=== PATIENT | female | born 1980 | race Caucasian/White ===

== ENCOUNTER → 2017-08-18 14:31 | Outpatient (CLI) | payer BC, SELFPAY ==
--- NOTE | 2017-08-18 14:43 | CT_ITS ---
CT abdomen pelvis w con CLINICAL INDICATION: Right lower quadrant pain with elevated white blood cell count ITS.REASON: ABDOMINAL PAIN ORDERING PHYSICIAN: DAYO Husain PATIENT AGE: 37 years TECHNIQUE: Axial images obtained with sagittal and coronal reformats. All CT scans at the facility use one or more dose reduction, viz: automated exposure control; ma/kV adjustment per patient size (including targeted exams where dose is matched to indication; i.e. head); or iterative reconstruction technique. PROCEDURE: Oral Contrast: None IV Contrast: 75 mL of Isovue-370. FINDINGS: Lung bases are clear. The liver, spleen, adrenal glands, pancreas, and gallbladder have an unremarkable appearance. No renal mass or obstructing ureteral calculus is evident. The appendix has an unremarkable appearance. There is a focal area of stranding of the mesenteric fat anterior to the mid aspect of the ascending colon. There is a ringlike density at this region measuring 12 mm in diameter with a small focal central density. This is consistent with epiploic appendagitis. There are no diverticula are apparent at this region. The appendix is posterior and distal to this area posterior to the ascending colon and has an unremarkable appearance. There is diverticulosis of the descending and sigmoid colon but no evidence of diverticulitis. No pelvic mass abnormal fluid collection or focal inflammatory change of the pelvis evident. No acute bony anomalies. IMPRESSION: 1. Epiploic appendagitis involving the ascending colon. 2. No evidence of appendicitis, abscess, or free air. 3. Colonic diverticulosis with no evidence of diverticulitis
== END ==
PROVIDERS: PCP Family Medicine; Visit Provider Physician Assistant
DX: R10.31 Right lower quadrant pain (principal)
CPT/HCPCS: 74177; Q9967

== ENCOUNTER → 2020-02-26 07:24 | Outpatient (CLI) | payer BC, SELFPAY ==
[2020-02-26 07:44] LABS: Basophils % 0.2 % (0.1-2.0); Eosinophils # 0.1 K/mm3 (0.0-0.4); Eosinophils % 1.8 % (0.1-12.0); Hematocrit 40.1 % (37.0-47.0); Hemoglobin 14.1 g/dL (12.2-16.2); Lymphocytes # 1.3 K/mm3 (0.7-4.5); Lymphocytes % 18.2 % (10-50); Mean Corpuscular HGB Conc 35.2 g/dL (31.8-35.4); Mean Corpuscular Volume 87.9 fl (81-99); Mean Platelet Volume 7.9 fl (7.4-10.4); Monocytes # 0.4 K/mm3 (0.1-1.0); Monocytes % 5.6 % (1.7-9.3); Neutrophils # 5.1 K/mm3 (1.8-7.8); Neutrophils % 74.2 % (37.0-80.0); Platelet Count 290 K/mm3 (142-424); Red Blood Count 4.56 M/mm3 (4.20-5.40); Red Cell Distribution Width 14.4 % (11.5-17.5); White Blood Count 6.9 K/mm3 (4.8-10.8)
[2020-02-26 08:35] LABS: Chloride 103 mmol/L (98-107); Sodium 138 mmol/L (136-145)
[2020-02-26 08:38] LABS: Alanine Aminotransferase 16 U/L (12-78); Albumin Level 4.3 g/dl (3.5-5.0); Alkaline Phosphatase 69 U/L (38-126); Aspartate Amino Transferase 22 U/L (14-36); Bilirubin,Total 0.4 mg/dl (0.2-1.3); Blood Urea Nitrogen 13 mg/dl (7-17); Calcium 9.3 mg/dl (8.4-10.2); Carbon Dioxide 27 mmol/L (22.0-30.0); Estimated Glomerular Filt Rate 112 ml/min (>60); GFR (African American) 136 ML/MIN (>60); Globulin 2.1 g/dL (1.3-3.2); Glucose 101 mg/dl (74-100); Iron 58 ug/dL (37-170); Total Protein,Serum 6.4 g/dl (6.3-8.2)
[2020-02-26 08:53] LABS: 25-OH Vitamin D, Total 68.1 ng/mL (30-100)
[2020-02-26 09:13] LABS: Ferritin 87.9 ng/ml (6.24-137)
[2020-02-26 10:44] LABS: Folate > 20.00 ng/mL
[2020-02-27 15:54] LABS: Prealbumin 17 mg/dL (14-35)
[2020-03-05 10:45] LABS: Vitamin B1 175.3 nmol/L (66.5-200.0)
[2020-03-07 04:50] LABS: Methylmalonic Acid 89 nmol/L (0-378)
== END ==
PROVIDERS: Visit Provider Physician Assistant
DX: E66.9 Obesity, unspecified (principal); K91.1 Postgastric surgery syndromes; E55.9 Vitamin D deficiency, unspecified; Z13.0 Encounter for screening for diseases of the blood and blood-forming organs and certain disorders involving the immune mechanism; Z13.21 Encounter for screening for nutritional disorder
CPT/HCPCS: 36415; 80053; 82131; 82306; 82728; 82746; 83540; 84134; 84425; 85025

== ENCOUNTER 2020-03-31 18:41 | Emergency (ER) | payer BC, SELFPAY ==
[2020-03-31 18:45] VITALS: BP 143/91; PULSE 91; RESP 18; TEMP 36.8; O2SAT 98; BMI 35.0
[2020-03-31 19:14] VITALS: BP 143/91; PULSE 91; RESP 18; TEMP 36.8; O2SAT 98; BMI 35.0
[2020-03-31 19:20] VITALS: BP 143/91; PULSE 91; RESP 18; TEMP 36.8; O2SAT 98
--- NOTE | 2020-03-31 19:50 | HMH.EDUTC ---
[facility] [place] Disposition Clinical Impression: Finger laceration Qualifiers: Encounter type: initial encounter Finger: thumb Damage to nail status: without damage Foreign body presence: without foreign body Laterality: right Qualified Code(s): S61.011A - Laceration without foreign body of right thumb without damage to nail, initial encounter Disposition: Home, Self-Care Condition on Discharge: Good Instructions: DI for Laceration Repair, DI for Laceration Repair -- Simple, DI for Laceration Repair -- Finger Additional Instructions: You have required stitches today. Please read the following instructions so you know how to care for them: 1. Keep wound area dry for the first 24 hours. 2 May clean gently with mild soap and water, after 48 hours to prevent crusting over suture knots. 3. You may shower if your provider gives permission but do not take a bath until the skin is healed.. 4. Never leave a wet dressing or Band-Aid on your stitches as this allows bacteria to reach the area and may cause infection. Band-aids can cause the wound to sweat and not recommended to wear for long periods of time Watch for signs of infection: Increasing redness, tenderness or warmth around the suture site Unusual swelling around the site Appearance of pus around each suture or any red streaks Fever If you develop any of the above signs or symptoms of infection, Follow up with Family Physician immediately 5. Suture removal in _10-12___days 6. Return to [facility] or follow up with family doctor for removal. This can be done by any medical provider during regular hours on Tuesday through Tuesday, by appointment. Referrals: Mendez Roldan MD [Primary Care Provider] - As needed Time of Disposition: 19:51 Medical Decision Making - Ramez Inquiry Pt receiving controlled substance: No Ramez was queried for this patient: No Vital Signs: 03/31/20 18:45 03/31/20 19:14 03/31/20 19:20 Temperature 98.3 F 98.3 F 98.3 F Temperature Source Oral Oral Pulse Rate 91 H Pulse Rate [Left Brachial] 91 H 91 H Respiratory Rate 18 18 18 Blood Pressure 143/91 H Blood Pressure [Left Arm] 143/91 H 143/91 H Blood Pressure Mean [Left Arm] 108 108 Blood Pressure Source [Left Arm] Automatic Cuff Automatic Cuff Blood Pressure Position [Left Arm] Sitting Sitting 02 Sat by Pulse Oximetry 98 98 Oxygen Delivery Method Room Air Room Air Orders (Tests/Meds): ED MEDICATIONS Discontinued Medications Generic Name Dose Route Start Last Admin Trade Name Demetria PRN Reason Stop Dose Admin Tetanus/Diphtheria Toxoids 0.5 ml 03/31/20 19:56 Tetanus-Diphth Toxoid, Adult 0.5ml Syr IM 03/31/20 19:57 .ONCE ONE [facility] [place] HPI - General Stated complaint: AO [id number] Laceration to right thumb Time Seen by Provider: 03/31/20 19:50 Mode of Arrival: Ambulatory Source of Information: Patient Limitations: No Limitations Description of Symptoms (Recalled from Triage Doc. by RN): Laceration to right thumb HEENT Symptoms (Recalled from RN notes): No Resp Symptoms (Recalled from RN notes): No Skin Symptoms (Recalled from RN notes): Yes MS Symptoms (Recalled from RN notes): No Functional Status (Recalled from RN notes): wnl - History of Present Illness Provider Complaint: Patient states she was at home when she accidently cut her right thumb when she was trying to fix some soup State that cut was small and by the fingernail but she knew it needed a stitch or two - Related Data Home Medications Medication Instructions Recorded Confirmed Omeprazole [Omeprazole 40mg 40 mg PO HS 03/31/20 03/31/20 Capsule] ursodioL [Actigall 300mg capsule] 300 mg PO BID 03/31/20 03/31/20 Allergies Allergy/AdvReac Type Severity Reaction Status Date / Time cephalexin [From KEFLET] Allergy Unknown I-RASH Verified 03/31/20 19:20 rimantadine [From FLUMADINE] Allergy Unknown BURNING Verified 03/31/20 19:20 - Worker's Comp Is this a Worker's Comp case?: No Is this an HM
== END 2020-03-31 20:07 | disposition home or self-care (01) ==
PROVIDERS: Emergency Provider Nurse Practitioner; PCP Family Medicine
DX: S61.011A Laceration without foreign body of right thumb without damage to nail, initial encounter (principal); W26.9XXA Contact with unspecified sharp object(s), initial encounter; Y92.010 Kitchen of single-family (private) house as the place of occurrence of the external cause; Z23 Encounter for immunization
CPT/HCPCS: 12001; 90471; 90714; 99201

== ENCOUNTER 2020-05-21 11:57 | Emergency (ER) | payer BC, SELFPAY ==
[2020-05-21 11:58] VITALS: BP 141/86; PULSE 69; RESP 19; TEMP 37.1; O2SAT 100; BMI 34.1
--- NOTE | 2020-05-21 12:39 | HMH.EDUTC ---
[facility] [place] Disposition Clinical Impression: Encounter for laboratory testing for COVID-19 virus Disposition: Home, Self-Care Condition on Discharge: Good Instructions: DI for COVID-19 (Suspected or Confirmed ), Coronavirus Disease 2019, Preventing the Spread of Coronavirus Discharge Instructions Additional Instructions: *Monitor Temp, Over the counter Motrin or Tylenol as directed/as needed Tylenol every 4 hours and Motrin every 6 hours (as long as your family doctor has told you that you can take it) for fever or pain. and straight to ER if unable to lower temp less than 101.0 after medication given Follow up IMMEDIATELY for new or worsening symptoms or no Noticeable improvement over the next 48-72 hours. 911 for difficulty breathing or swallowing You were tested for today for COVID19 your test result should be back in the next 24-48 hours, you may call to the [facility] to see if your test results are back in the next 48 hours [phone] [facility] hours are 9am-9pm You was given a handout with instructions for Self Quarantine and Self isolation for while you wait on test results and what to do if they are positive If you are positive the Health Dept will be contacting you also Referrals: Mendez Roldan MD [Primary Care Provider] - As needed Time of Disposition: 12:43 Medical Decision Making - Ramez Inquiry Pt receiving controlled substance: No Ramez was queried for this patient: No Vital Signs: 05/21/20 11:58 Temperature 98.8 F Temperature Source Oral Pulse Rate [Left Radial] 69 Respiratory Rate 19 Blood Pressure [Right Arm] 141/86 H Blood Pressure Mean [Right Arm] 104 Blood Pressure Source [Right Arm] Automatic Cuff Blood Pressure Position [Right Arm] Sitting 02 Sat by Pulse Oximetry 100 Oxygen Delivery Method Room Air Orders (Tests/Meds): ORDERS Category Date Time Status Covid-19 Nasal PCR Sendout P&C Stat Lab 05/21/20 12:01 Ordered [facility] [place] HPI - General Stated complaint: covid exposure Time Seen by Provider: 05/21/20 12:40 Mode of Arrival: Ambulatory Source of Information: Patient Limitations: No Limitations Description of Symptoms (Recalled from Triage Doc. by RN): covid test HEENT Symptoms (Recalled from RN notes): No Resp Symptoms (Recalled from RN notes): No Skin Symptoms (Recalled from RN notes): No MS Symptoms (Recalled from RN notes): No Functional Status (Recalled from RN notes): wnl - History of Present Illness Provider Complaint: Patient states that her and son recently tested positive for COVID States that she isn't having any symptoms but her other children is suppose to come home and she wanted to get tested before they came - Related Data Home Medications Medication Instructions Recorded Confirmed Omeprazole [Omeprazole 40mg 40 mg PO HS 03/31/20 03/31/20 Capsule] ursodioL [Actigall 300mg capsule] 300 mg PO BID 03/31/20 03/31/20 Allergies Allergy/AdvReac Type Severity Reaction Status Date / Time cephalexin [From KEFLET] Allergy Unknown I-RASH Verified 03/31/20 19:20 rimantadine [From FLUMADINE] Allergy Unknown BURNING Verified 03/31/20 19:20 - Worker's Comp Is this a Worker's Comp case?: No [facility] History - Hepatitis A Screen Drug use history?: No High risk sexual behaviors?: No History of sexually transmitted infection?: No Currently employed?: No Childcare worker?: No Do you have indoor plumbing?: Yes Do you have electricity?: Yes Attestation statement:: This patient has been screened for Hepatitis A risk factors. I have reviewed the patient's past medical history: Yes Laterality Cases: Bilateral: Myringotomy (Ear Tubes), Tonsillectomy Other Surgeries: Yes: No Previous Surgery - Social History Smoking Status: Never smoker Alcohol Intake: never Alcohol Intake Frequency:: holidays/special occasions only Substance Use Type: denies use Occupational Status: other Housing: house Household Members: family Family Hx:: Cancer, Diabetes ROS Obtain
[2020-05-21 12:51] VITALS: BP 141/86; PULSE 69; RESP 19; TEMP 37.1; O2SAT 100
[2020-05-22 08:05] LABS: Covid-19 Nasal PCR Sendout P&C Negative
== END 2020-05-21 12:52 | disposition home or self-care (01) ==
PROVIDERS: Emergency Provider Nurse Practitioner; PCP Family Medicine
DX: Z20.822 Contact with and (suspected) exposure to COVID-19 (principal)
CPT/HCPCS: 99202; G0463; U0004

== ENCOUNTER → 2021-03-26 15:48 | Outpatient (CLI) | payer BC, SELFPAY ==
[2021-03-26 16:36] LABS: Adenovirus,PCR Not Detected (NotDetected); Bordetella Pertussis Not Detected (NotDetected); Chlamydophila Pneumoniae, PCR Not Detected (NotDetected); Coronavirus 19, PCR Not Detected (NotDetected); Coronavirus 229E Not Detected (NotDetected); Coronavirus NL63 Not Detected (NotDetected); Coronavirus OC43 Not Detected (NotDetected); Coronovirus HKU1,PCR Not Detected (NotDetected); Human Metapneumovirus Not Detected (NotDetected); Influenza A, PCR Not Detected (NotDetected); Influenza AH1, 2009 Not Detected (NotDetected); Influenza AH1, PCR Not Detected (NotDetected); Influenza AH3,PCR Not Detected (NotDetected); Influenza B, PCR Not Detected (NotDetected); Mycoplasma Pneumoniae, PCR Not Detected (NotDetected); Parainfluenza 1, PCR Not Detected (NotDetected); Parainfluenza 2, PCR Not Detected (NotDetected); Parainfluenza 3, PCR Not Detected (NotDetected); Parainfluenza 4, PCR Not Detected (NotDetected); Respiratory Syncytial Virus Not Detected (NotDetected); Rhinovirus/Enterovirus Not Detected (NotDetected)
[2021-03-26 17:05] LABS: Basophils # 0.1 K/mm3 (0-0.2); Basophils % 0.6 % (0.1-2.0); Eosinophils # 0.2 K/mm3 (0.0-0.4); Eosinophils % 2.6 % (0.1-12.0); Hematocrit 41.4 % (37.0-47.0); Hemoglobin 14.1 g/dL (12.2-16.2); Lymphocytes # 2.1 K/mm3 (0.7-4.5); Lymphocytes % 22.8 % (10-50); Mean Corpuscular Hemoglobin 30.1 pg (27.0-31.2); Mean Corpuscular Volume 88.5 fl (81-99); Mean Platelet Volume 9.1 fl (7.4-10.4); Monocytes # 0.5 K/mm3 (0.1-1.0); Monocytes % 4.9 % (1.7-9.3); Neutrophils # 6.3 K/mm3 (1.8-7.8); Neutrophils % 69.1 % (37.0-80.0); Platelet Count 353 K/mm3 (142-424); Red Blood Count 4.68 M/mm3 (4.20-5.40); Red Cell Distribution Width 12.7 % (11.5-17.5); White Blood Count 9.1 K/mm3 (4.8-10.8)
== END ==
LOC: LAB 03-27 05:58 → COVID.OUT 03-27 05:58
PROVIDERS: PCP Family Medicine; Visit Provider Family Medicine
DX: Z20.822 Contact with and (suspected) exposure to COVID-19 (principal)
CPT/HCPCS: 36415; 85025; 87581; 87632; 87798; C9803; U0003; U0005

== ENCOUNTER → 2021-04-29 13:21 | Outpatient (CLI) | payer BC, SELFPAY | PROVIDERS: Visit Provider Nurse Practitioner | DX: U07.1 COVID-19 (principal) | CPT/HCPCS: C9803; U0003; U0005 ==

== ENCOUNTER 2021-05-15 09:10 | Emergency (ER) | payer BC, SELFPAY ==
[2021-05-15 09:40] VITALS: BP 136/74; PULSE 78; RESP 18; TEMP 36.6; O2SAT 98; BMI 32.1
[2021-05-15 09:52] LABS: Apearance,Urine Clear (Clear); Bilirubin,Urine Negative (Negative); Blood, Urine Trace (Negative); Color,Urine Yellow (Yellow); Glucose,Urine (UA) Negative (Negative); Ketones,Urine Negative (Negative); PH,Urine 5.5 (5.0-8.5); Protein,Urine Negative (Negative); Specific Gravity, Urine 1.015 (1.005-1.030); UTC Leukocyte Esterase,Urine Negative (Negative); UTC Nitrate,Urine Negative (Negative); Urobilinogen,Urine 0.2 EU/dl (0.2)
--- NOTE | 2021-05-15 10:03 | HMH.EDUTC ---
[facility] [place] Condition on Discharge: Good <Zelda Preciado - Last Filed: 05/15/21 17:50> <Ashleigh Beach - Last Filed: 05/15/21 20:59> Clinical Impression: Abdominal pain Qualifiers: Abdominal location: unspecified location Qualified Code(s): R10.9 - Unspecified abdominal pain Disposition: Home, Self-Care Instructions: Ovarian Cyst, DI for Diverticulitis Prescriptions: Fluconazole 150 mg PO ONCE 3 Days #2 tab Transmission Status: Received by [facility] # levoFLOXacin [Levaquin 750mg tablet] 750 mg PO DAILY #7 tab Transmission Status: Received by [facility] # metroNIDAZOLE [metroNIDAZOLE 500mg Tablet] 500 mg PO TID #21 tab Transmission Status: Received by [facility] # Referrals: Mendez Roldan MD [Primary Care Provider] - Medical Decision Making - Ramez Inquiry Pt receiving controlled substance: No Ramez was queried for this patient: No - Lab Data Lab results reviewed: Yes: I reviewed the patient's lab results. Result diagrams: 05/15/21 10:32 05/15/21 10:32 <Zelda Preciado - Last Filed: 05/15/21 17:50> - Lab Data Result diagrams: 05/15/21 10:32 05/15/21 10:32 <Ashleigh Beach - Last Filed: 05/15/21 20:59> Vital Signs: 05/15/21 09:40 05/15/21 10:17 05/15/21 13:27 Temperature 97.8 F 98.3 F 98.3 F Temperature Source Oral Oral Pulse Rate 65 Pulse Rate [Left Brachial] 78 65 Respiratory Rate 18 15 15 Blood Pressure 128/41 L Blood Pressure [Left Arm] 136/74 128/41 L Blood Pressure Mean [Left Arm] 94 70 Blood Pressure Source [Left Arm] Automatic Cuff Automatic Cuff Blood Pressure Position [Left Arm] Sitting Sitting 02 Sat by Pulse Oximetry 98 99 Oxygen Delivery Method Room Air Room Air Room Air - Lab Data Lab Results 05/15/21 09:47: Urine Color Yellow, Urine Appearance Clear, Urine pH 5.5, Ur Specific [place] 1.015, Urine Protein Negative, Urine Glucose (UA) Negative, Urine Ketones Negative, Urine Blood Trace, Urine Nitrate Negative, Urine Bilirubin Negative, Urine Urobilinogen 0.2, Ur Leukocyte Esterase Negative 05/15/21 10:32: WBC 12.3 H, RBC 4.42, Hgb 13.3, Hct 40.4, MCV 91.4, MCH 30.2, MCHC 33.0, RDW 12.8, Plt Count 306, MPV 7.9, Neut % (Auto) 81.9 H, Lymph % (Auto) 11.9, [place] % (Auto) 5.1, Eos % (Auto) 0.7, Baso % (Auto) 0.4, Neut # (Auto) 10.1 H, Lymph # (Auto) 1.5, [place] # (Auto) 0.6, Eos # (Auto) 0.1, Baso # (Auto) 0.1 05/15/21 10:32: Sodium 139, Potassium 3.9, Chloride 105, Carbon Dioxide 27, Anion Gap 10.9, BUN 19 H, Creatinine 0.70, Estimated Creat Clear 158, Estimated GFR 93, Est GFR ( Amer) 113, Glucose 88, Calcium 8.8 05/15/21 10:32: Serum HCG, Qual Negative Orders (Tests/Meds): ED MEDICATIONS Discontinued Medications Generic Name Dose Route Start Last Admin Trade Name Demetria PRN Reason Stop Dose Admin Iopamidol 75 ml 05/15/21 11:17 05/15/21 11:17 Iopamidol-370 (76%);100ml Bottle IV 05/15/21 11:18 75 ml ONCE ONE Administration Sodium Chloride 10 ml 05/15/21 11:17 05/15/21 11:17 Sodium Chloride 0.9% 10ml Syr (Rad Only) IV 05/15/21 11:18 10 ml ONCE ONE Administration ORDERS Category Date Time Status Urine Culture Stat Micro 05/15/21 09:48 Received Medical Decision Narrative: Discussed with patient and due to patient complaining of left lower abdomen pain recommended that patient be transferred the the ED for further work up and evaluation for abdominal pain Called ED spoke with Farheen and patient was moved to room 9 (Zelda Preciado) Dr. Beach, see my note from the emergency department, did not evaluate this patient in person with STEPHEN. (Ashleigh Beach) [facility] [place] - General Mode of Arrival: Ambulatory Source of Information: Patient Limitations: No Limitations Description of Symptoms (Recalled from Triage Doc. by RN): PATIENT C/O PAIN TO LOWER LEFT ABDOMEN SINCE YESTERDAY. PT BELIEVES IT MAY BE A DIVERTICULITIS ATTACK HEENT Symptoms (Recalled from RN notes): No
--- NOTE | 2021-05-15 10:12 | PC.NURSE ---
PATIENT SENT TO ER PER Andrés SCANLON APRN FOR FURTHER EVALUATION. REPORTS GIVEN TO Marycarmen HO RN BY Andrés SCANLON APRN
[2021-05-15 10:17] VITALS: BP 128/41; PULSE 65; RESP 15; TEMP 36.8; O2SAT 99; BMI 32.1
--- NOTE | 2021-05-15 10:23 | CT_ITS ---
FINAL REPORT CLINICAL HISTORY: hx diverticulitis; LLQ/LUQ abd pain FINDINGS: CT OF THE ABDOMEN AND PELVIS WITH CONTRAST Axial CT images of the abdomen and pelvis were obtained after the administration of iv contrast. Coronal reformatted images were also obtained and reviewed.This study was performed with techniques to keep radiation doses as low as reasonably achievable (ALARA). Individualized dose reduction techniques using automated exposure control or adjustment of mA and/or kV according to the patient's size were employed. Abdomen: The lung bases are clear. The heart is normal in size. The liver has an unremarkable appearance, without evidence of mass or biliary ductal dilatation. The gallbladder is present. There are postoperative changes from gastric sleeve. The spleen is unremarkable. No adrenal mass is present. The pancreas has an unremarkable appearance. The kidneys are normal, without evidence of mass or hydronephrosis. The aorta is normal in caliber. There is no adenopathy. Pelvis: The appendix normal. The urinary bladder is unremarkable. There is a 2.8 cm left ovarian cyst. There are multiple sigmoid diverticula. There is acute proximal sigmoid diverticulitis with no evidence of abscess, bowel obstruction or pneumoperitoneum. There is a small amount of free fluid that could be reactive or physiologic. IMPRESSION: Acute proximal sigmoid diverticulitis as described. Left ovarian cyst. Small amount of free fluid, could be reactive or physiologic. Reviewed, Interpreted and Dictated by Krystian Thomason III, MD Transcribed by Mer Fragoso Authenticated by Krystian Thomason III, MD on 05/15/2021 12:08:19 PM [facility]
--- NOTE | 2021-05-15 10:24 | HMH.EDGENADL ---
ED Disposition Clinical Impression: Abdominal pain Qualifiers: Abdominal location: unspecified location Qualified Code(s): R10.9 - Unspecified abdominal pain Disposition: Home, Self-Care Condition on Discharge: Good Instructions: DI for Diverticulitis, Ovarian Cyst Prescriptions: Fluconazole 150 mg PO ONCE 3 Days #2 tab Transmission Status: Pending to [facility] # levoFLOXacin [Levaquin 750mg tablet] 750 mg PO DAILY #7 tab Transmission Status: Pending to [facility] # metroNIDAZOLE [metroNIDAZOLE 500mg Tablet] 500 mg PO TID #21 tab Transmission Status: Pending to [facility] # Referrals: Mendez Roldan MD [Primary Care Provider] - - Critical Care Critical Care Time: No Attestation: On 05/15/21, the high probability of a clinically significant, sudden or life threatening deterioration of the following system(s) required my full and direct attention, intervention and personal management. The time I documented below is in addition to time spent performing reported procedures but includes the following listed in this critical care notation. Medical Decision Making - Medical Records Medical records reviewed: Yes: I reviewed the patient's medical records. - Ramez Inquiry Pt receiving controlled substance: No Vital Signs: 05/15/21 09:40 05/15/21 10:17 Temperature 97.8 F 98.3 F Temperature Source Oral Oral Pulse Rate [Left Brachial] 78 65 Respiratory Rate 18 15 Blood Pressure [Left Arm] 136/74 128/41 L Blood Pressure Mean [Left Arm] 94 70 Blood Pressure Source [Left Arm] Automatic Cuff Automatic Cuff Blood Pressure Position [Left Arm] Sitting Sitting 02 Sat by Pulse Oximetry 98 99 Oxygen Delivery Method Room Air Room Air - Lab Data Lab results reviewed: Yes: I reviewed the patient's lab results. Lab Results 05/15/21 09:47: Urine Color Yellow, Urine Appearance Clear, Urine pH 5.5, Ur Specific [place] 1.015, Urine Protein Negative, Urine Glucose (UA) Negative, Urine Ketones Negative, Urine Blood Trace, Urine Nitrate Negative, Urine Bilirubin Negative, Urine Urobilinogen 0.2, Ur Leukocyte Esterase Negative 05/15/21 10:32: WBC 12.3 H, RBC 4.42, Hgb 13.3, Hct 40.4, MCV 91.4, MCH 30.2, MCHC 33.0, RDW 12.8, Plt Count 306, MPV 7.9, Neut % (Auto) 81.9 H, Lymph % (Auto) 11.9, [place] % (Auto) 5.1, Eos % (Auto) 0.7, Baso % (Auto) 0.4, Neut # (Auto) 10.1 H, Lymph # (Auto) 1.5, [place] # (Auto) 0.6, Eos # (Auto) 0.1, Baso # (Auto) 0.1 05/15/21 10:32: Sodium 139, Potassium 3.9, Chloride 105, Carbon Dioxide 27, Anion Gap 10.9, BUN 19 H, Creatinine 0.70, Estimated Creat Clear 158, Estimated GFR 93, Est GFR ( Amer) 113, Glucose 88, Calcium 8.8 05/15/21 10:32: Serum HCG, Qual Negative Result diagrams: 05/15/21 10:32 05/15/21 10:32 Orders (Tests/Meds): ED MEDICATIONS Discontinued Medications Generic Name Dose Route Start Last Admin Trade Name Freq PRN Reason Stop Dose Admin Iopamidol 75 ml 05/15/21 11:17 05/15/21 11:17 Iopamidol-370 (76%);100ml Bottle IV 05/15/21 11:18 75 ml ONCE ONE Administration Sodium Chloride 10 ml 05/15/21 11:17 05/15/21 11:17 Sodium Chloride 0.9% 10ml Syr (Rad Only) IV 05/15/21 11:18 10 ml ONCE ONE Administration ORDERS Category Date Time Status Urine Culture Stat Micro 05/15/21 09:48 Received Medical Decision Narrative: 41-year-old female who presents to the emergency department with chief complaint of left lower quadrant abdominal pain. Patient has a history of diverticulitis, and states that this feels similar to past episode. She denies any other associated symptoms. Patient has already had a negative urinalysis at the urgent treatment center, so we will evaluate with a CBC, BMP, qualitative hCG, and proceed with CT abdomen and pelvis with IV contrast to evaluate for diverticulitis or other intra-abdominal abscess or process. Patient did not request any pain medication or nausea medication whi
[2021-05-15 10:43] LABS: Basophils # 0.1 K/mm3 (0-0.2); Basophils % 0.4 % (0.1-2.0); Eosinophils # 0.1 K/mm3 (0.0-0.4); Eosinophils % 0.7 % (0.1-12.0); Hematocrit 40.4 % (37.0-47.0); Hemoglobin 13.3 g/dL (12.2-16.2); Lymphocytes # 1.5 K/mm3 (0.7-4.5); Lymphocytes % 11.9 % (10-50); Mean Corpuscular Hemoglobin 30.2 pg (27.0-31.2); Mean Corpuscular Volume 91.4 fl (81-99); Mean Platelet Volume 7.9 fl (7.4-10.4); Monocytes # 0.6 K/mm3 (0.1-1.0); Monocytes % 5.1 % (1.7-9.3); Neutrophils # 10.1 K/mm3 (1.8-7.8); Neutrophils % 81.9 % (37.0-80.0); Platelet Count 306 K/mm3 (142-424); Red Blood Count 4.42 M/mm3 (4.20-5.40); Red Cell Distribution Width 12.8 % (11.5-17.5); White Blood Count 12.3 K/mm3 (4.8-10.8)
[2021-05-15 11:02] LABS: Chloride 105 mmol/L (98-107); Potassium 3.9 mmoL/L (3.5-5.1); Sodium 139 mmol/L (136-145)
[2021-05-15 11:04] LABS: HCG Qualitative, Serum Negative (Negative)
[2021-05-15 11:05] LABS: Anion Gap 10.9 mEq/L (5-15); Blood Urea Nitrogen 19 mg/dl (7-17); Calcium 8.8 mg/dl (8.4-10.2); Carbon Dioxide 27 mmol/L (22.0-30.0); Creatinine Clearance Estimated 158 mL/min (50-200); Estimated Glomerular Filt Rate 93 ml/min (>60); GFR (African American) 113 ML/MIN (>60); Glucose 88 mg/dl (74-100)
[2021-05-15 13:27] VITALS: BP 128/41; PULSE 65; RESP 15; TEMP 36.8; O2SAT 99
== END 2021-05-15 13:27 | disposition home or self-care (01) ==
LOC: UTC 10:10 → ER 10:12
PROVIDERS: Emergency Medicine; Emergency Provider Nurse Practitioner; PCP Family Medicine
DX: R10.32 Left lower quadrant pain (principal); K57.92 Diverticulitis of intestine, part unspecified, without perforation or abscess without bleeding; Z98.84 Bariatric surgery status
CPT/HCPCS: 74177; 80048; 81003; 84703; 85025; 87086; 99283; Q9967

== ENCOUNTER → 2022-03-30 08:35 | Outpatient (POV) | payer BC, SELFPAY | PROVIDERS: Visit Provider Dermatology | DX: Z00.00 Encounter for general adult medical examination without abnormal findings (principal) ==

== ENCOUNTER 2022-04-15 03:14 | Emergency (ER) | payer BC, SELFPAY ==
[2022-04-15 03:15] VITALS: BP 155/73; PULSE 73; RESP 18; TEMP 36.8; O2SAT 99; BMI 33.6
--- NOTE | 2022-04-15 03:42 | CT_ITS ---
PROCEDURE INFORMATION: Exam: CT Abdomen And Pelvis With Contrast Exam date and time: 04/15/2022 4:20 AM Age: 42 years old Clinical indication: Abdominal pain; Localized; Left lower quadrant (llq); Prior surgery; Surgery type: Gastric sleeve; Additional info: Llq abd pain TECHNIQUE: Imaging protocol: Computed tomography of the abdomen and pelvis with contrast. Radiation optimization: All CT scans at this facility use at least one of these dose optimization techniques: automated exposure control; mA and/or kV adjustment per patient size (includes targeted exams where dose is matched to clinical indication); or iterative reconstruction. Contrast material: ISOVUE; Contrast volume: 75 ml; Contrast route: IV; COMPARISON: CT ABDOMEN PELVIS W CON 05/15/2021 11:10 AM FINDINGS: Liver: No mass. Gallbladder and bile ducts: Stable mild nonspecific intra and extrahepatic biliary ductal dilatation. Pancreas: Normal. No ductal dilation. Spleen: No mass. Adrenal glands: No mass. Kidneys and ureters: No hydronephrosis. Stomach and bowel: Sleeve gastrectomy changes. Small hiatal hernia. Colonic diverticulosis. Wall thickening and slight stranding about the sigmoid colon, compatible with acute diverticulitis. Appendix: No evidence of appendicitis. Intraperitoneal space: Trace nonspecific free pelvic fluid. No free air or drainable fluid collection. Vasculature: No abdominal aortic aneurysm. Lymph nodes: No enlarged lymph nodes. Urinary bladder: Unremarkable as visualized. Reproductive: Nonspecific left ovarian cyst/cystic lesion measuring up to 5.7 x 5.7 cm. This may be physiologic, but consider follow-up transvaginal ultrasound. Bones/joints: No acute fracture. Soft tissues: Unremarkable. IMPRESSION: 1. Colonic diverticulosis. Wall thickening and slight stranding about the sigmoid colon, compatible with acute diverticulitis. No free air or drainable fluid collection. 2. Nonspecific left ovarian cyst/cystic lesion measuring up to 5.7 x 5.7 cm. This may be physiologic, but consider follow-up transvaginal ultrasound. 3. Other findings as detailed in the body of the report.
[2022-04-15 03:51] LABS: Microscopic, Urine URINE MICROSCOPIC (MICROSCOPIC)
[2022-04-15 03:55] LABS: Basophils # 0.1 K/mm3 (0-0.2); Basophils % 0.9 % (0.1-2.0); Eosinophils # 0.1 K/mm3 (0.0-0.4); Eosinophils % 1.2 % (0.1-12.0); Hematocrit 40.4 % (37.0-47.0); Hemoglobin 13.2 g/dL (12.2-16.2); Lymphocytes # 2.4 K/mm3 (0.7-4.5); Lymphocytes % 25.1 % (10-50); Mean Corpuscular HGB Conc 32.6 g/dL (31.8-35.4); Mean Corpuscular Volume 92.1 fl (81-99); Mean Platelet Volume 7.9 fl (7.4-10.4); Monocytes # 0.4 K/mm3 (0.1-1.0); Monocytes % 4.3 % (1.7-9.3); Neutrophils # 6.5 K/mm3 (1.8-7.8); Neutrophils % 68.6 % (37.0-80.0); Platelet Count 311 K/mm3 (142-424); Red Blood Count 4.38 M/mm3 (4.20-5.40); Red Cell Distribution Width 12.6 % (11.5-17.5); White Blood Count 9.4 K/mm3 (4.8-10.8)
[2022-04-15 04:00] LABS: Chloride 107 mmol/L (98-107)
[2022-04-15 04:01] LABS: Appearance,Urine CLEAR (Clear); Bilirubin,Urine Negative (Negative); Blood, Urine Negative (Negative); Color,Urine YELLOW (Yellow); Glucose,Urine (UA) Negative (Negative); Ketones,Urine Negative (Negative); Leukocyte Esterase,Urine Negative (Negative); Nitrate,Urine Negative (Negative); Protein,Urine Negative (Negative); Specific Gravity, Urine >= 1.030 (1.005-1.030); Urobilinogen,Urine 0.2 EU/dl (0.2)
[2022-04-15 04:01] LABS: Potassium 3.7 mmoL/L (3.5-5.1); Sodium 140 mmol/L (136-145)
[2022-04-15 04:03] LABS: Alanine Aminotransferase 13 U/L (12-78); Alkaline Phosphatase 61 U/L (38-126); Amylase 54 U/L (30-110); Anion Gap 10.7 mEq/L (5-15); Aspartate Amino Transferase 25 U/L (14-36); Blood Urea Nitrogen 17 mg/dl (7-17); Calcium 9.2 mg/dl (8.4-10.2); Carbon Dioxide 26 mmol/L (22.0-30.0); Creatinine Clearance Estimated 164 mL/min (50-200); Estimated Glomerular Filt Rate 93 ml/min (>60); GFR (African American) 112 ML/MIN (>60); Glucose 98 mg/dl (74-100); Lipase 49 U/L (23-300)
[2022-04-15 04:04] LABS: Albumin/Globulin Ratio 1.7 (1.1-1.8); Globulin 2.3 g/dL (1.3-3.2); Total Protein,Serum 6.3 g/dl (6.3-8.2)
[2022-04-15 04:05] LABS: Bilirubin,Total 0.1 mg/dl (0.2-1.3); HCG Qualitative, Serum Negative (Negative)
[2022-04-15 04:30] LABS: Bacteria,Urine 2+ /lpf
--- NOTE | 2022-04-15 05:42 | HMH.EDABDPAI ---
Discharge Plan Disposition Patient Disposition: Home, Self-Care Prescriptions Prescriptions: New metronidazole 500 mg Tablet 500 mg PO TID Qty: 30 0RF levofloxacin 500 mg tablet 500 mg PO DAILY Qty: 10 0RF No Action etonogestrel-ethinyl estradiol 1 EACH ring 1 each VG ONCE Referrals Follow up/Referrals: Mendez Roldan MD [Primary Care Provider] - See instructions Clinical Impressions Clinical Impression: Diverticulitis, Ovarian cyst Instructions Patient Instructions: DI for Acute Abdominal Pain Discharge ED Provider: Kendrick Alba Abdominal Pain HPI General Chief Complaint: Abdominal Pain Stated Complaint: abdominal pain Time Seen by Provider: 04/15/22 04:00 Mode of Arrival: Family Vehicle Source of Information: Patient and Medical Record Limitations: No Limitations Description of Symptoms (Recalled from ER Triage Doc. by RN): Pt c/o LLQ ABD pain that woke her up at 2:30am. States she took 3x Tylenol and pain has not diminished. States last year she had a ovarian cyst and diverticulitis. Denies any urinary complaints. Denies any n/v/d. Denies any fever or chills. History of Present Illness HPI narrative: pt with lt lower abd pain which started today with known hx of diverticulitis - no vomiting complaint: abdominal pain Onset (ago): hour(s) Consistency: constant Location: LLQ Severity: moderate Associated symptoms: denies other symptoms Related Data Home Medications Medication Instructions Recorded Confirmed etonogestrel 0.12 mg-ethinyl 1 each VG ONCE control 05/15/21 04/15/22 estradiol 0.015 mg/24 hr vaginal ring Previous Rx's Medication Instructions Recorded levofloxacin 500 mg tablet 500 mg PO DAILY #10 tabs 04/15/22 metronidazole 500 mg tablet 500 mg PO TID #30 tabs 04/15/22 Allergies Allergy/AdvReac Type Severity Reaction Status Date / Time cephalexin [From KEFLET] Allergy Unknown I-RASH Verified 03/31/20 19:20 rimantadine [From FLUMADINE] Allergy Unknown BURNING Verified 03/31/20 19:20 [facility] Disclaimer: The information contained in this section may have been updated after the patient was seen, as this information can be updated by other users. Social History Smoking Status: Never smoker second hand exposure: No alcohol intake: never substance use type: denies use current occupational status: other Travel in the last 8 weeks: None household members: family housing: house ROS Obtained: Yes All systems reviewed & no additional complaints except as documented Physical Exam General General appearance: alert Head Head exam: normocephalic Eye Eye exam: Present PERRL and EOMI ENT ENT exam: Present mucous membranes moist Neck Neck exam: Present trachea midline Respiratory Respiratory exam: Absent respiratory distress Cardiovascular Cardiovascular exam: Present regular rate Abdominal Exam Abdominal exam: Present soft and tenderness; Absent guarding, rebound or rigidity Abdominal tenderness: Present LLQ and moderate Extremities Exam Extremities exam: Present full ROM Neurological Exam Neurological exam: Present alert, oriented X3 and CN II-XII intact; Absent motor sensory deficit Psychiatric Psychiatric exam: Present normal affect Skin Skin exam: Absent rash Medical Decision Making Medical Records Medical records reviewed: Yes I reviewed the patient's medical records. Ramez Inquiry Pt receiving controlled substance: No Vital Signs: 04/15/22 03:15 Temperature 98.3 F Temperature Source Oral Pulse Rate [Right] 73 Respiratory Rate 18 Blood Pressure [Right Arm] 155/73 H Blood Pressure Mean [Right Arm] 100 Blood Pressure Source [Right Arm] Automatic Cuff 02 Sat by Pulse Oximetry 99 Oxygen Delivery Method Room Air Lab Data Lab results reviewed: Yes I reviewed the patient's lab results. Lab Results 04/15/22 03:22: Urine Color Yellow, Urine Appearance Clear, Urine pH 6.0, Ur Specific [place] >=
[2022-04-15 06:04] VITALS: BP 111/59; PULSE 62; RESP 17; TEMP 36.9; O2SAT 99
== END 2022-04-15 06:08 | disposition home or self-care (01) ==
PROVIDERS: Emergency Provider Emergency Medicine; PCP Family Medicine
DX: R10.32 Left lower quadrant pain (principal); K57.92 Diverticulitis of intestine, part unspecified, without perforation or abscess without bleeding; Z79.3 Long term (current) use of hormonal contraceptives; Z79.899 Other long term (current) drug therapy; Z88.8 Allergy status to other drugs, medicaments and biological substances
CPT/HCPCS: 74177; 80053; 81001; 82150; 83690; 84703; 85025; 87086; 96361; 96374; 96375; 99285; Q9967

== ENCOUNTER 2022-07-03 08:46 | Emergency (ER) | payer BC, SELFPAY ==
[2022-07-03 08:50] VITALS: BP 128/84; PULSE 75; RESP 19; TEMP 37; O2SAT 97; BMI 35.2
[2022-07-03 09:03] VITALS: BP 128/84; PULSE 75; RESP 19; TEMP 37; O2SAT 97
--- NOTE | 2022-07-03 09:08 | EXP.UTC ---
Discharge Plan Disposition Patient Disposition: Home, Self-Care Condition: Good Prescriptions Prescriptions: New ilqkeqtxznrqjse-xfchvfnxd-JN [Bromfed DM] 2-30-10 mg/5 mL syrup 10 ml PO Q6H PRN (Reason: cold symptoms) Qty: 118 0RF doxycycline hyclate 100 mg capsule 100 mg PO BID Qty: 20 0RF No Action etonogestrel-ethinyl estradiol 1 EACH ring 1 each VG ONCE Referrals Follow up/Referrals: Mendez Roldan MD [Primary Care Provider] - See instructions Activity Restrictions/Add. Instructions Additional Instructions/Restrictions: If symptoms do not improve in a week may start antibiotic. Clinical Impressions Clinical Impression: Upper respiratory tract infection Instructions Patient Instructions: DI for Viral Upper Respiratory Infection -- Adult Discharge ED Provider: Araseli Yee [facility] General Stated complaint: Congestion,cough,sore throat Mode of Arrival: Ambulatory Source of Information: Patient Limitations: No Limitations Time Seen by Provider: 07/03/22 08:59 Description of Symptoms (Recalled from Triage Doc. by RN): PATIENT C/O SINUS PRESSURE AND CONGESTION SINCE TUESDAY NIGHT HEENT Symptoms (Recalled from RN notes): Yes Resp Symptoms (Recalled from RN notes): No Skin Symptoms (Recalled from RN notes): No MS Symptoms (Recalled from RN notes): No Functional Status (Recalled from RN notes): WNL History of Present Illness Provider Complaint: Pt relates that she has been taking Mucinex for sinus symptoms and cough. She states that she has had a lot of pressure and her drainage is turning a light green. has had similar symptoms. Related Data Home Medications Medication Instructions Recorded Confirmed etonogestrel 0.12 mg-ethinyl 1 each VG ONCE control 05/15/21 07/03/22 estradiol 0.015 mg/24 hr vaginal ring Previous Rx's Medication Instructions Recorded vcgtltsjnzgvqxf-mzgvzwxsrvitgvc-KT 10 ml PO Q6H PRN cold symptoms 07/03/22 2 mg-30 mg-10 mg/5 mL oral syrup #118 mL (Bromfed DM) doxycycline hyclate 100 mg capsule 100 mg PO BID #20 caps 07/03/22 Allergies Allergy/AdvReac Type Severity Reaction Status Date / Time cephalexin [From KEFLET] Allergy Unknown I-RASH Verified 03/31/20 19:20 rimantadine [From FLUMADINE] Allergy Unknown BURNING Verified 03/31/20 19:20 Worker's Comp Is this a Worker's Comp case?: No [facility] Disclaimer: The information contained in this section may have been updated after the patient was seen, as this information can be updated by other users. Social History Smoking Status: Never smoker second hand exposure: No alcohol intake: never substance use type: denies use current occupational status: other Travel in the last 8 weeks: None household members: family housing: house ROS Obtained: Yes All systems reviewed & no additional complaints except as documented Constitutional Constitutional: Reports system reviewed and no additional complaints, except as documented, Reports headache(s) and Reports malaise Eyes Eyes: Reports system reviewed and no additional complaints, except as documented ENT Ears, Nose, Mouth, and Throat: Reports system reviewed and no additional complaints, except as documented, Reports headache(s), Reports nasal congestion, Reports nasal discharge, Reports post nasal drip and Reports sinus pressure Cardiovascular Cardiovascular: Reports system reviewed and no additional complaints, except as documented Respiratory Respiratory: Reports system reviewed and no additional complaints, except as documented and Reports cough Gastrointestinal Gastrointestingal: Reports system reviewed and no additional complaints, except as documented Genitourinary Female Genitourinary: Reports system reviewed and no additional complaints, except as documented Musculoskeletal Musculoskeletal: Reports system reviewed and no additional complaints, except as documented Integumentary/Breasts Skin/Breast: Rep
== END 2022-07-03 09:09 | disposition home or self-care (01) ==
PROVIDERS: Emergency Provider Nurse Practitioner Family; PCP Family Medicine
DX: J06.9 Acute upper respiratory infection, unspecified (principal); R51.9 Headache, unspecified; R07.0 Pain in throat; B34.9 Viral infection, unspecified
CPT/HCPCS: 99212; 99214; G0463

== ENCOUNTER 2024-08-08 15:25 | Outpatient (CLI) | payer BC, SELFPAY ==
--- NOTE | 2024-08-08 15:30 | XR_ITS ---
FINAL REPORT CLINICAL HISTORY: RIGHT ELBOW PAIN post fall FINDINGS: Right elbow Three views were obtained. There is no fracture or dislocation. There is no joint effusion. There is moderate osteophyte formation at the medial joint margin. The joint spaces appear normal. No soft tissue abnormality is identified. IMPRESSION: No acute process. Reviewed, Interpreted and Dictated by Alfonso Noyola MD Transcribed by Qing Koenig Authenticated and . [facility]
== END 2024-08-08 23:59 | disposition home or self-care (01) ==
LOC: RAD 15:27
PROVIDERS: PCP Family Medicine; Visit Provider Family Medicine
DX: M25.521 Pain in right elbow (principal); M25.721 Osteophyte, right elbow
CPT/HCPCS: 73080